=== PATIENT | female | born 1965 | race African-American/Black ===

== ENCOUNTER 2019-05-21 01:19 | Emergency (ER) | payer OTHER ==
[~2019-05-21] VITALS: Ht 165.1 cm; Wt 54.4 kg
[~2019-05-21 01:19] MED LIST: AMBIEN 5 MG TABL5 M1 PO; AMITRIPTYLINE H10 M3 PO; DILAUDID 2 MG TA2 MG PO; NEURONTIN 300300 M1 PO; NORFLEX100 MG PO
[2019-05-21] MEDS ORDERED: PEPCID20 MG PO (01:26)
[2019-05-21] MEDS ORDERED: NORCO 5-325 TA1 EAC1 PO (01:48)
[2019-05-21] MEDS ORDERED: NAPROSYN500 MG PO (01:48)
[2019-05-21] MEDS ORDERED: SENNA-DOCUSATE1 EAC1 PO (01:48)
[2019-05-21] MEDS ORDERED: NORFLEX100 MG PO (01:48)
[2019-05-21 02:31] VITALS: BP 133/91
== END 2019-05-21 02:32 | disposition home or self-care (01) ==
LOC: ER 01:19
DX: M79.18 Myalgia, other site (principal); M06.9 Rheumatoid arthritis, unspecified; F17.210 Nicotine dependence, cigarettes, uncomplicated; Z98.890 Other specified postprocedural states